=== PATIENT | female | born 1970 | race Caucasian/White ===

== ENCOUNTER 2018-12-11 14:19 | Emergency (ER) | payer MEDICAID ==
[~2018-12-11] VITALS: Ht 170.2 cm; Wt 70.8 kg
[2018-12-11 14:35] VITALS: BP 144/117
--- NOTE | 2018-12-11 14:35 | NUR ---
PT TRIAGED AND AMBULATED TO E
--- NOTE | 2018-12-11 14:45 | NUR ---
PATIENT C/O R HAND PAIN X 2 WEEKS 03/11 ACHING S/P PUNCHING METAL GATE. SEEN AT AND GIVEN ABX, XRAY AND BRACE. SUSTAINED LAC TO R HAND, BLEEDING CONTROLLED. HAND IS ERYTHEMATIC, NO SWELLING NOTED, CMS INTACT.
[2018-12-11] MEDS ORDERED: IBUPROFEN 600 MG TAB PO ONE (15:15)
[2018-12-11 15:48] VITALS: BP 140/102
--- NOTE | 2018-12-11 15:48 | NUR ---
Patient discharged with v/s stable. Written and verbal after care instructions given and explained. Patient alert, oriented and verbalized understanding of instructions. Ambulatory with steady gait. All questions addressed prior to discharge. ID band removed. Patient advised to follow up with PMD. Rx of Ibuprofen 600mg given. Patient educated on indication of medication including possible reaction and side effects. Opportunity to ask questions provided and answered.
== END 2018-12-11 15:48 | disposition home or self-care (01) ==
LOC: MED 14:19
DX: S61.411A Laceration without foreign body of right hand, initial encounter (principal); F17.200 Nicotine dependence, unspecified, uncomplicated; W22.09XA Striking against other stationary object, initial encounter; Y93.89 Activity, other specified; Y92.89 Other specified places as the place of occurrence of the external cause; Y99.8 Other external cause status
CPT/HCPCS: 99283